=== PATIENT | male | born 1990 | race Caucasian/White ===

== ENCOUNTER 2018-12-16 14:34 | Emergency (ER) | payer OTHER ==
[~2018-12-16] VITALS: Ht 172.7 cm; Wt 90.7 kg
[2018-12-16 14:49] VITALS: BP 138/77
[2018-12-16] MEDS ORDERED: TRAM50TA PO (14:52)
[2018-12-16] MEDS ORDERED: AMOX500C PO (14:52)
--- NOTE | 2018-12-16 14:52 | PHYS DOC ---
Adult General Chief Complaint Chief Complaint: FACE PROBLEM HPI HPI Patient is a 28 year old male whom presents to the ED complaining of left facial swelling since waking up this morning. Patient states he has a fake front right tooth and left frontal teeth pain. States he thinks he is starting to get a dental abscess. Describes his pain as sharp. Rates his pain as 4 out of 10. Denies allergy exposure, difficulty swallowing, tongue swelling, fever, nausea/vomiting, chest pain, injury, sore throat, chills, shortness of breath or dizziness. Review of Systems Review of Systems Constitutional: Denies fever or chills [] Eyes: Denies change in visual acuity, redness, or eye pain [] HENT: Complains of dental pain. Denies nasal congestion or sore throat [] Respiratory: Denies cough or shortness of breath [] Cardiovascular: No additional information not addressed in HPI [] GI: Denies abdominal pain, nausea, vomiting, bloody stools or diarrhea [] : Denies dysuria or hematuria [] Musculoskeletal: Denies back pain or joint pain [] Integument: Denies rash or skin lesions [] Neurologic: Denies headache, focal weakness or sensory changes [] All other systems were reviewed and found to be within normal limits, except as documented in this note. Physical Exam Physical Exam Constitutional: Well developed, well nourished, no acute distress, non-toxic appearance. [] HENT: Normocephalic, atraumatic, bilateral external ears normal, oropharynx moist, no oral exudates, nose normal. Mild left frontal maxillary region swelling. Left frontal dental caries. No palpable abscess. [] Eyes: PERRLA, EOMI, conjunctiva normal, no discharge. [] Neck: Normal range of motion, no tenderness, supple, no stridor. [] Cardiovascular:Heart rate regular rhythm, no murmur [] Lungs & Thorax: Bilateral breath sounds clear to auscultation [] Skin: Warm, dry, no erythema, no rash. [] Neurologic: Alert and oriented X 3, normal motor function, normal sensory function, no focal deficits noted. [] Psychologic: Affect normal, judgement normal, mood normal. [] EKG EKG [] Radiology/Procedures Radiology/Procedures [] Course & Med Decision Making Course & Med Decision Making Pertinent Labs and Imaging studies reviewed. (See chart for details) []Dental caries on exam. No palpable abscess. Patient tolerating by mouth. No tongue swelling or difficulty swallowing. We'll treat outpatient with antibiotics and recommend follow-up with dentist this week. Patient given dental resource list. Discussed signs and symptoms to return to the ED. Patient understands and agrees with plan. Dragon Disclaimer Dragon Disclaimer This electronic medical record was generated, in whole or in part, using a voice recognition dictation system. Departure Departure Impression: Primary Impression: Pain, dental Disposition: HOME, SELF-CARE Condition: STABLE Referrals: LILIAM DLATON DDS Patient Instructions: Dental Pain Scripts Tramadol Hcl (TRAMADOL HCL) 50 Mg Tablet 50 MG PO Q4HRS PRN for PAIN, #10 TAB Prov: GURMEET GUTIERREZ 12/16/18 Amoxicillin (AMOXICILLIN) 500 Mg Capsule 1 CAP PO TID for 10 Days, #30 CAP Prov: GURMEET GUTIERREZ 12/16/18 GURMEET GUTIERREZ Dec 16, 2018 14:52
== END 2018-12-16 14:54 | disposition home or self-care (01) ==
LOC: MERGE 14:34 → ER 14:34
DX: K02.9 Dental caries, unspecified (principal); R22.0 Localized swelling, mass and lump, head
CPT/HCPCS: 99283